=== PATIENT | male | born 1960 | race Caucasian/White ===

== ENCOUNTER 2019-05-02 12:00 | Inpatient (IN) | payer SELFPAY ==
[~2019-05-02] VITALS: Ht 175.3 cm; Wt 90.5 kg
[2019-05-02 12:54] LABS: Basophils # (auto) 0.1 uL; Eosinophils # (auto) 0.3 uL; Hemoglobin 19.9 g/dL (13.5-17.5); Neutrophils # (auto) 6.4 uL
[2019-05-02 12:56] LABS: Basophils % (auto) 0.8 % (0.0-2.0); Eosinophils % (auto) 2.8 % (0.0-7.0); Hematocrit 58.3 % (41.0-53.0); Lymphocytes # (auto) 1.9 uL; Lymphocytes % (auto) 19.2 % (10.0-50.0); Mean Corpuscular Hemoglobin 36.3 pg (28.0-32.0); Mean Corpuscular Hgb Conc. 34.1 g/dL (32.0-36.0); Mean Corpuscular Volume 106.5 fL (80.0-100.0); Monocytes # (auto) 1.1 uL; Monocytes % (auto) 11.1 % (0.0-12.0); Neutrophils % (auto) 66.1 % (37.0-80.0); Nucleated Red Blood Cells % 0.2 %; Platelet Count (auto) 228 10^3/uL (140-450); Red Blood Cells 5.47 10^6/uL (4.5-5.90); Red Cell Distribution Width 15.8 % (11.8-14.3); White Blood Cell 9.6 10^3/uL (4.4-10.8)
[2019-05-02 13:10] LABS: Albumin 3.5 g/dL (3.4-5.0); BUN/Creatinine Ratio 7.1; Potassium 4.3 mmol/L (3.5-5.1)
[2019-05-02 13:13] LABS: Bilirubin, Total 0.6 mg/dL (0.2-1.0); Total Protein 7.5 g/dL (6.4-8.2)
[2019-05-02] MEDS ORDERED: SODIUM CHLORIDE 0.9% 1,000 ML IV ONE (14:25)
[2019-05-02] MEDS ORDERED: ENOXAPARIN SOD 100 MG/1 ML SYRINGE SC ONE (17:00)
[2019-05-02] MEDS ORDERED: CLOPIDOGREL BISULFATE 75 MG TAB PO ONE (17:00)
[2019-05-02] MEDS ORDERED: cloNIDine HCL 0.1 MG TAB PO ONE (17:45)
[2019-05-02] MEDS ORDERED: HYDROcodone-ACET 5/325MG TAB PO PRN (18:45)
[2019-05-02] MEDS ORDERED: ACETAMINOPHEN 500 MG TAB PO PRN (18:45)
[2019-05-02] MEDS ORDERED: ALPRAZolam 0.25 MG TAB PO PRN (18:45)
[2019-05-02] MEDS ORDERED: NITROGLYCERIN 0.4 MG SL TAB SL PRN (18:45)
[2019-05-02] MEDS ORDERED: MORPHINE SULF INJ 2 MG/ML SYRINGE 1ML IV PRN ×2 (18:45)
[2019-05-02 19:29] LABS: INR 0.95 (0.9-1.15); Partial Thromboplastin Time 31.3 sec (23.64-32.05)
--- NOTE | 2019-05-02 20:55 | NUR ---
Telemetry admit from ER AURADARRELL admitted to Telemetry unit; no SBAR received. Patient oriented by PB LYONS, primary RN, to unit, room, bed, and unit policies regarding patient care and visiting hours. Patient now on continuous telemetry monitoring, tele box #[id number] and telemetry reading on arrival to unit SR 67 with sl elev of T waves. Patient on room air, weighed by bedscale and encouraged to call if he needs something. All questions and concerns addressed, patient verbalized understanding. Bed locked in low position with HOB rails up and position in Hwang's. Nurse call light at pt's right side within reach.
[2019-05-02 21:47] VITALS: BP_SYST 145; BP_SYST 160; BP_DIAS 112; BP_DIAS 90
[2019-05-02] MEDS ORDERED: HEPARIN SODIUM (PORCINE) 5000 UNITS/ML 1ML VIAL IV ONE (23:30)
[2019-05-03] MEDS: ONDANSETRON HCL 4 MG/2 ML VIAL IV PRN ×2 (00:06→05:46)
[2019-05-03] MEDS: HEPARIN DRIP/D5W 100UNITS/ML 250 ML IV SCH ×2 (00:23→08:16)
[2019-05-03] MEDS: SODIUM CHLORIDE 0.9% 1,000 ML IV SCH ×2 (00:25→04:45)
--- NOTE | 2019-05-03 00:25 | NUR ---
Heparin gtt started after bolus given slow IV push.
--- NOTE | 2019-05-03 00:58 | NUR ---
Photos taken of two wounds on bilat heels. L heel presents as crevice in calloused area of heel R had thickened yellow material as with callous within/on callous on admission and pt's rubbing of feet on linens appears to have rubbed off top surface.
--- NOTE | 2019-05-03 01:09 | NUR ---
No tele strip available as printer in tele monitoring room is not working and this unit does not have the correct printer for this task.
[2019-05-03] MEDS: LABETALOL HCL 5 MG/ML ML 20ML VIAL IV PRN ×2 (05:34→19:45)
[2019-05-03 05:37] VITALS: BP_SYST 139; BP_SYST 171; BP_DIAS 101; BP_DIAS 107
[2019-05-03 06:41] LABS: Basophils # (auto) 0.1 uL; Basophils % (auto) 0.8 % (0.0-2.0); Eosinophils # (auto) 0.2 uL; Hemoglobin 18.1 g/dL (13.5-17.5); Lymphocytes # (auto) 1.7 uL; Mean Corpuscular Volume 107.3 fL (80.0-100.0); Monocytes # (auto) 0.9 uL; Monocytes % (auto) 10.8 % (0.0-12.0); Neutrophils # (auto) 5.5 uL; Red Cell Distribution Width 15.7 % (11.8-14.3)
[2019-05-03 06:45] LABS: Eosinophils % (auto) 2.9 % (0.0-7.0); Hematocrit 53.1 % (41.0-53.0); Lymphocytes % (auto) 20.2 % (10.0-50.0); Mean Corpuscular Hemoglobin 36.5 pg (28.0-32.0); Neutrophils % (auto) 65.3 % (37.0-80.0); Nucleated Red Blood Cells % 0.3 %; Platelet Count (auto) 199 10^3/uL (140-450); Red Blood Cells 4.94 10^6/uL (4.5-5.90); White Blood Cell 8.4 10^3/uL (4.4-10.8)
[2019-05-03 06:52] LABS: INR 0.99 (0.9-1.15); Partial Thromboplastin Time 42.8 sec (23.64-32.05)
[2019-05-03 06:58] LABS: Albumin 2.9 g/dL (3.4-5.0); Calcium 8.3 mg/dL (8.5-10.1); Potassium 3.8 mmol/L (3.5-5.1)
[2019-05-03 07:02] LABS: BUN/Creatinine Ratio 8.8; Total Protein 6.5 g/dL (6.4-8.2)
[2019-05-03 08:00] VITALS: BP 142/87
[2019-05-03 09:00] VITALS: BP 142/87
[2019-05-03] MEDS ORDERED: HYDROmorphone HCL 2 MG/ML VL IV ONE (09:30)
[2019-05-03] MEDS ORDERED: HCTZ 25 MG TAB PO ONE (10:15)
[2019-05-03] MEDS: FAMOTIDINE 20 MG TAB PO SCH (10:19)
[2019-05-03] MEDS: HCTZ 25 MG TAB PO SCH (10:20)
[2019-05-03 10:25] LABS: INR 0.99 (0.9-1.15); Partial Thromboplastin Time 44.7 sec (23.64-32.05)
--- NOTE | 2019-05-03 13:00 | NUR ---
patient was in procedure
[2019-05-03] MEDS ORDERED: ANGIOMAX 250 MG VIAL IV ONE ×3 (14:12→17:49)
[2019-05-03] MEDS ORDERED: MIDAZOLAM HCL 1MG/1ML-2 ML VIAL ONE ×4 (14:12→17:30)
[2019-05-03] MEDS ORDERED: fentaNYL CITRATE 100 MCG/2 ML VL ONE ×4 (14:12→17:29)
[2019-05-03] MEDS ORDERED: LIDOCAINE 2%HCL (LOCAL ANESTH.) INJ 20ML MDV ONE ×2 (14:13→16:11)
[2019-05-03] MEDS ORDERED: IOHEXOL 350 MG/ML 100ML IJ ONE (14:13)
[2019-05-03] MEDS ORDERED: SODIUM CHL 0.9% 50 ML ONE ×3 (14:34→17:49)
--- NOTE | 2019-05-03 17:47 | NUR ---
PATIENT STILL WASN'T AVAILABLE FOR 1700 VITALS
[2019-05-03] MEDS ORDERED: ASPirin 325 MG TAB ONE (18:06)
[2019-05-03] MEDS ORDERED: CLOPIDOGREL 300 MG TAB ONE (18:06)
--- NOTE | 2019-05-03 19:15 | NUR ---
OPENING NOTE RECEIVED REPORT FROM SHAYNA RN. RECEIVED PATIENT FROM STAFF TECHNOLOGIST WELL. PATIENT SHOWING NO SIGN OF DISTRESS, SHORTNESS OF BREATH, AND PATIENT DENIES ANY PAIN AT THIS TIME. PATIENT'S INCISIONS INSPECTED AND ASSESSED. DRESSINGS ARE CLEAN DRY AND INTACT AND SHOWING NO SIGN OF HEMATOMA. PULSES ARE LOCATED USING DOPPLER AND CAPILLARY REFILL IS NOTED. BED LOWERED, CALL LIGHT WITHIN REACH, AND PATIENT WILL BE ROUNDED ON EVERY HOUR AND NEEDED.
--- NOTE | 2019-05-03 19:30 | NUR ---
PULSES LOCATED USING DOPPLER.
[2019-05-03] MEDS: HYDROmorphone HCL 2 MG/ML VL IV PRN ×2 (20:45→23:46)
--- NOTE | 2019-05-03 21:30 | NUR ---
PULSES LOCATED USING DOPPLER.
[2019-05-03 21:43] VITALS: BP 157/92
[2019-05-03 23:00] VITALS: BP 132/84
--- NOTE | 2019-05-03 23:30 | NUR ---
PULSES LOCATED USING DOPPLER. PATIENT STATING PAIN FROM LEG. PATIENT'S PAIN MANAGEMENT ADDRESSED AND WILL CONTINUE TO BE MONITORED. LEG SHOWING REDNESS BUT NO SIGNS OF CYANOSIS OR NECROSIS AT THIS TIME. CAP REFILL NOTED AND PULSES LOCATED USING DOPPLER. WILL CONTINUE TO MONITOR.
[2019-05-04] MEDS: SODIUM CHLORIDE 0.9% 1,000 ML IV SCH ×4 (00:45→23:53)
--- NOTE | 2019-05-04 03:30 | NUR ---
PULSES LOCATED WITH DOPPLER PER COMMUNICATION ORDER, PULSES LOCATED WITH DOPPLER. PATIENT STATES PAIN IS LESSENED. NO SIGN OF CYANOSIS OR NECROSIS. WILL CONTINUE TO MONITOR.
[2019-05-04 05:35] VITALS: BP 137/85
[2019-05-04] MEDS: HYDROmorphone HCL 2 MG/ML VL IV PRN ×3 (06:07→13:52)
--- NOTE | 2019-05-04 07:35 | NUR ---
Patient in bed, asleep, no acute distress noted.
[2019-05-04 09:00] VITALS: BP 154/93
[2019-05-04] MEDS: CLOPIDOGREL BISULFATE 75 MG TAB PO SCH (09:53)
--- NOTE | 2019-05-04 09:53 | NUR ---
Patient stated his back and leg pain level at 10/10 at this time. Dilaudid Inj 0.5 mg given for severe pain as ordered.
[2019-05-04] MEDS: HCTZ 25 MG TAB PO SCH (09:54)
[2019-05-04] MEDS: FAMOTIDINE 20 MG TAB PO SCH (09:54)
[2019-05-04] MEDS: ASPirin 81 mg TAB PO SCH (09:54)
--- NOTE | 2019-05-04 09:55 | NUR ---
Carotid pulse located using Doppler. Addendum: 05/04/19 at 1004 by Lluvia Logan RN PAN FERNANDEZ.
--- NOTE | 2019-05-04 09:55 | NUR ---
Pulses located using Doppler.
--- NOTE | 2019-05-04 11:35 | NUR ---
Patient is aware that he's on bedrest until 7:00 pm today. Patient stated he's unable to walk yet.
--- NOTE | 2019-05-04 11:35 | NUR ---
About 460 ml of dark north urine emptied from the two urinals, strong urine smell noted.
[2019-05-04 13:00] VITALS: BP 143/90
--- NOTE | 2019-05-04 13:45 | NUR ---
JUSTINA Mariscal said patient unable to walk for physical therapy, patient complained of back and leg/foot pain.
--- NOTE | 2019-05-04 13:52 | NUR ---
Patient stated his back and leg/foot pain level at 10/10 at this time. Dilaudid Inj 0.5 mg given for pain as ordered.
--- NOTE | 2019-05-04 16:15 | NUR ---
Patient's mother and sister at bedside.
[2019-05-04 17:00] VITALS: BP 152/97
--- NOTE | 2019-05-04 18:25 | NUR ---
Patient in bed, denies severe pain at this time, refused pain medication at this time, stated he will ask for pain medication before bedtime later.
--- NOTE | 2019-05-04 18:30 | NUR ---
Pulses located with Doppler.
[2019-05-04 22:00] VITALS: BP 144/95
[2019-05-04] MEDS: METOPROLOL TARTRATE 25 MG TAB PO SCH (23:54)
[2019-05-05 00:20] LABS: Alcohol, Urine < 3.0 mg/dL (0-5); Amphetamine Screen, Urine NEGATIVE (NEGATIVE); Barbiturate Scree,Urine NEGATIVE (NEGATIVE); Benzodiazephine Screen, Urine POSITIVE (NEGATIVE); Cannabinoid Screen, Urine NEGATIVE (NEGATIVE); Cocaine Screen, Urine NEGATIVE (NEGATIVE); Opiate Scree,Urine NEGATIVE (NEGATIVE); Phencyclidine Screen, Urine NEGATIVE (NEGATIVE)
[2019-05-05 05:00] VITALS: BP 124/91
[2019-05-05 06:27] LABS: Eosinophils # (auto) 0.1 uL; Hemoglobin 18.9 g/dL (13.5-17.5); Monocytes % (auto) 12.2 % (0.0-12.0); Nucleated Red Blood Cells % 0.1 %
[2019-05-05 06:28] LABS: Basophils # (auto) 0 uL; Basophils % (auto) 0.3 % (0.0-2.0); Eosinophils % (auto) 0.5 % (0.0-7.0); Lymphocytes % (auto) 8.6 % (10.0-50.0); Mean Corpuscular Hemoglobin 36.8 pg (28.0-32.0); Mean Corpuscular Hgb Conc. 34.4 g/dL (32.0-36.0); Monocytes # (auto) 1.4 uL; Neutrophils # (auto) 9.4 uL; Neutrophils % (auto) 78.4 % (37.0-80.0); Platelet Count (auto) 217 10^3/uL (140-450); Red Blood Cells 5.14 10^6/uL (4.5-5.90); Red Cell Distribution Width 15.7 % (11.8-14.3); White Blood Cell 11.9 10^3/uL (4.4-10.8)
[2019-05-05 06:38] LABS: BUN/Creatinine Ratio 11.6; Calcium 9.1 mg/dL (8.5-10.1); Magnesium 2.2 mg/dL (1.6-2.6); Potassium 3.8 mmol/L (3.5-5.1)
[2019-05-05] MEDS: SODIUM CHLORIDE 0.9% 1,000 ML IV SCH ×2 (06:43→12:59)
--- NOTE | 2019-05-05 07:40 | NUR ---
Opening Shift Note Assumed care of patient, AOx4. No S/S of distress/SOB or pain. Patient on safety precautions with bed in lowest position/locked, side rails up x2, and call light within reach. Patient instructed on POC today and to call for assist PRN, will continue to monitor for changes Q1hr and PRN.
[2019-05-05 09:00] VITALS: BP 133/86
[2019-05-05] MEDS: HCTZ 25 MG TAB PO SCH (09:36)
[2019-05-05] MEDS: FAMOTIDINE 20 MG TAB PO SCH (09:36)
[2019-05-05] MEDS: CLOPIDOGREL BISULFATE 75 MG TAB PO SCH (09:36)
[2019-05-05] MEDS: ASPirin 81 mg TAB PO SCH (09:36)
[2019-05-05] MEDS: METOPROLOL TARTRATE 25 MG TAB PO SCH ×2 (09:37→22:00)
--- NOTE | 2019-05-05 10:44 | NUR ---
MD Doctor Martinez at bedside discussed plan of treatment. New orders given/carried out.
--- NOTE | 2019-05-05 11:42 | NUR ---
Nutrition Assessment Notes please see attached link for complete assessment Est. Needs BW [id number] kcal (20-23 kcal/kgBW), 90-99 gms pro (1.0-1.1 gms/kgBW). Will continue to monitor pertinent labs and reassess nutrient need prn Addendum: 05/05/19 at [address] Amended: Links added.
[2019-05-05 13:00] VITALS: BP 132/84
--- NOTE | 2019-05-05 13:42 | NUR ---
OFF UNIT PATIENT OFF UNIT VIA BED TO BUSINESS SOLUTIONS ANALYST. NO S/S SOB/DISTRESS NOTED.
[2019-05-05] MEDS ORDERED: LIDOCAINE 2%HCL (LOCAL ANESTH.) INJ 20ML MDV ONE (14:00)
[2019-05-05] MEDS ORDERED: MIDAZOLAM HCL 1MG/1ML-2 ML VIAL ONE ×2 (14:00→14:37)
[2019-05-05] MEDS ORDERED: fentaNYL CITRATE 100 MCG/2 ML VL ONE ×3 (14:00→15:52)
[2019-05-05] MEDS ORDERED: SODIUM CHL 0.9% 50 ML ONE ×2 (14:00→14:58)
[2019-05-05] MEDS ORDERED: ANGIOMAX 250 MG VIAL IV ONE ×2 (14:00→14:57)
[2019-05-05] MEDS ORDERED: ceFAZolin 1GM/50ML 50 ML IV ONE (14:24)
[2019-05-05] MEDS ORDERED: IODIXANOL 320MG/ML 100ML BTL IV ONE (14:24)
--- NOTE | 2019-05-05 16:55 | NUR ---
BACK ON UNIT PATIENT BACK ON UNIT VIA BED FROM SITE INSPECTOR. NO S/S OF SOB/DISTRESS NOTED. DRESSING C/D/I. INSTRUCTED PATIENT SIT UP TIME 1800, PATIENT VERBALIZED UNDERSTANDING. CALL LIGHT WITH IN REACH. WILL CONTINUE TO MONITOR FOR CHANGED.
[2019-05-05 17:00] VITALS: BP 144/101
--- NOTE | 2019-05-05 17:29 | NUR ---
assessment Patient is a 59 year old female who is alert and oriented. Patients cognitive abilities are intact. Prior to admission patient lived home alone and functioned independently. Patient informed me she is able to care for her own ADLs. Per patient she will return home to her prior living arrangements post discharge and family will transport her home. Patient has no insurance. Patient has been assessed by Clayton Estrada of [facility]. Patient is over income 1,800.00 per month. I have provided patient with resources for [facility], Dr. Acosta, and [facility] urgent care for follow up visits. I have provided patient with a prescription card from community assistance program. Patient has no post discharge needs at this time. I informed patient she has a right to speak to a social service technician regarding all care. I informed patient she has a right to participate in any and all discharge planning. Patient does not have a POA and advanced directive. I have offered patient information on POA and advanced directives. I informed the patient the advantages and benefits of having an Advanced Directive. Patient verbalized understanding and agreed to discharge plan. Addendum: 05/05/19 at 1731 by Jessica MUELLER Amended: Links added.
[2019-05-05 22:00] VITALS: BP 131/79
--- NOTE | 2019-05-06 01:05 | NUR ---
report given by naomi rosado, pt. awake, no c/o pain, to continue pt. care.
[2019-05-06] MEDS: SODIUM CHLORIDE 0.9% 1,000 ML IV SCH (03:18)
[2019-05-06 05:00] VITALS: BP_SYST 119; BP_SYST 130; BP_DIAS 75; BP_DIAS 86
[2019-05-06 05:50] LABS: Basophils # (auto) 0 uL; Basophils % (auto) 0.3 % (0.0-2.0); Eosinophils # (auto) 0.1 uL; Eosinophils % (auto) 1.1 % (0.0-7.0); Hematocrit 54.5 % (41.0-53.0); Lymphocytes # (auto) 1.2 uL; Mean Corpuscular Hemoglobin 37.3 pg (28.0-32.0); Mean Corpuscular Hgb Conc. 34.9 g/dL (32.0-36.0); Monocytes # (auto) 1.6 uL; Monocytes % (auto) 13.6 % (0.0-12.0); Neutrophils # (auto) 8.9 uL; Platelet Count (auto) 250 10^3/uL (140-450); Red Blood Cells 5.09 10^6/uL (4.5-5.90); Red Cell Distribution Width 15.5 % (11.8-14.3); White Blood Cell 11.9 10^3/uL (4.4-10.8)
[2019-05-06 06:23] LABS: Calcium 9.1 mg/dL (8.5-10.1); Potassium 3.7 mmol/L (3.5-5.1)
--- NOTE | 2019-05-06 07:20 | NUR ---
OPENING NOTE ASSUMED CARE OF PT. ALERT AND ORIENTED. NO S/S SOB/DISTRESS NOTED. DENIES ANY PAIN. SAFETY PRECAUTIONS IN PLACE. BED SET TO LOWEST POSITION/LOCKED. BEDSIDE RAILS UP X2. CALL LIGHT WITHIN REACH. INSTRUCTED PT TO CALL FOR ASSISTANCE. UPDATED ON POC. PT VERBALIZED UNDERSTANDING. WILL CONTINUE TO MONITOR Q1HR AND PRN.
[2019-05-06 09:00] VITALS: BP 127/79
[2019-05-06] MEDS: HCTZ 25 MG TAB PO SCH (09:40)
[2019-05-06] MEDS: FAMOTIDINE 20 MG TAB PO SCH (09:40)
[2019-05-06] MEDS: ASPirin 81 mg TAB PO SCH (09:41)
[2019-05-06] MEDS: CLOPIDOGREL BISULFATE 75 MG TAB PO SCH (09:41)
[2019-05-06] MEDS: METOPROLOL TARTRATE 25 MG TAB PO SCH ×2 (09:42→22:09)
[2019-05-06] MEDS ORDERED: METO25TA36 PO (14:27)
[2019-05-06] MEDS ORDERED: ASPI81CH43 PO ×2 (14:27→14:28)
[2019-05-06] MEDS ORDERED: CLOP75TA28 PO (14:27)
[2019-05-06] MEDS ORDERED: ATOR10TA52 PO (14:27)
[2019-05-06 16:40] VITALS: BP 123/87
[2019-05-06 22:00] VITALS: BP 139/86
[2019-05-06] MEDS ORDERED: ATORVASTATIN 20 MG TAB PO SCH (22:00)
[2019-05-07 05:51] VITALS: BP 130/85
[2019-05-07 06:39] LABS: Potassium 3.3 mmol/L (3.5-5.1)
[2019-05-07 06:45] LABS: BUN/Creatinine Ratio 24.5; Calcium 9.2 mg/dL (8.5-10.1)
[2019-05-07 09:00] VITALS: BP 149/85
[2019-05-07] MEDS ORDERED: POTASSIUM CHL 20 Meq TABLET PO ONE (09:30)
[2019-05-07] MEDS ORDERED: HYDROmorphone HCL 2 MG/ML VL IV PRN (09:30)
[2019-05-07] MEDS ORDERED: MULTIPLE VITAMINS W/ MINERALS TAB PO SCH (10:00)
[2019-05-07] MEDS: ASPirin 81 mg TAB PO SCH (10:21)
[2019-05-07] MEDS: CLOPIDOGREL BISULFATE 75 MG TAB PO SCH (10:22)
[2019-05-07] MEDS: FAMOTIDINE 20 MG TAB PO SCH (10:22)
[2019-05-07] MEDS: METOPROLOL TARTRATE 25 MG TAB PO SCH (10:23)
[2019-05-07 11:10] VITALS: BP 149/85
--- NOTE | 2019-05-07 12:30 | NUR ---
Discharge instructions given as ordered. Encourage to follow up with PMD as instructed. All questions and concerns addressed. Patient verbalized understanding. IV removed with catheter intact, pressure dressing applied. Telemetry unit returned to ICU.
[2019-05-07 12:43] VITALS: BP 141/91
--- NOTE | 2019-05-07 13:15 | NUR ---
Pt ambulated for the last 25ft w/out a FWW. Pt demo'd slight unsteady gait. Pt states that he has access to a FWW and a single point cane that used to be his mothers. Pt is possibly being D/C'd today or tomorrow. Addendum: 05/07/19 at 1316 by Bryanna Gardner PT Amended: Links added.
--- NOTE | 2019-05-07 14:00 | NUR ---
Patient taken to vehicle via wheelchair with all personal belongings, accompanied by staff and family member. No distress noted at time of departure.
== END 2019-05-07 14:00 | disposition home or self-care (01) | DRG 253 ==
LOC: ER 12:17 → TELE 12:18 → TELE-WESTW 20:57
PROVIDERS: ADMIT Nurse Practitioner Acute Care; ATTEND Internal Medicine
PROC: 047L3ZZ Dilation of Left Femoral Artery, Percutaneous Approach (ICD-10-PCS; 2019-05-03)
PROC: 047N3ZZ Dilation of Left Popliteal Artery, Percutaneous Approach (ICD-10-PCS; 2019-05-03)
PROC: 047L34Z Dilation of Left Femoral Artery with Drug-eluting Intraluminal Device, Percutaneous Approach (ICD-10-PCS; principal; 2019-05-05)
PROC: 047M34Z Dilation of Right Popliteal Artery with Drug-eluting Intraluminal Device, Percutaneous Approach (ICD-10-PCS; 2019-05-05)
PROC: 047T34Z Dilation of Right Peroneal Artery with Drug-eluting Intraluminal Device, Percutaneous Approach (ICD-10-PCS; 2019-05-05)
DX: I70.201 Unspecified atherosclerosis of native arteries of extremities, right leg (principal); E87.1 Hypo-osmolality and hyponatremia; E66.9 Obesity, unspecified; E78.5 Hyperlipidemia, unspecified; E86.0 Dehydration; F10.10 Alcohol abuse, uncomplicated; F17.210 Nicotine dependence, cigarettes, uncomplicated; I10 Essential (primary) hypertension; M25.78 Osteophyte, vertebrae; M48.061 Spinal stenosis, lumbar region without neurogenic claudication; M48.07 Spinal stenosis, lumbosacral region; M51.26 Other intervertebral disc displacement, lumbar region; Y90.9 Presence of alcohol in blood, level not specified; M51.37 Other intervertebral disc degeneration, lumbosacral region; Z98.62 Peripheral vascular angioplasty status; Z71.6 Tobacco abuse counseling; Z68.29 Body mass index [BMI] 29.0-29.9, adult
CPT/HCPCS: 36415; 37224; 37226; 37228; 37230; 72131; 76775; 76942; 80048; 80053; 80061; 80307; 82565; 83735; 85025; 85610; 85730; 86850; 86900; 86901; 93926; 97116; 97530; 99152; 99153; C1725; C1874; G0378; J0690; J2250; J2405; Q9967